=== PATIENT | female | born 1990 | race Caucasian/White ===

== ENCOUNTER 2017-10-15 17:03 | Emergency (ER) | payer MEDICAID ==
[~2017-10-15] VITALS: Ht 167.6 cm; Wt 95.7 kg
[2017-10-15 17:16] VITALS: BP 128/79
--- NOTE | 2017-10-15 17:22 | NUR ---
Patient being evaluated by Dr. Carter at bedside.
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
[2017-10-15] MEDS ORDERED: METOCLOPRAMIDE 10 MG/2 ML INJ VIAL IM ONE (17:35)
[2017-10-15] MEDS ORDERED: ACETAMINOPHEN EXTRA STRENGTH 500 MG TAB PO ONE (17:35)
--- NOTE | 2017-10-15 17:50 | NUR ---
X-Ray at bedside.
[2017-10-15 18:05] LABS: BASOPHILS # (AUTO) 0.5 K/uL (0.00-0.22); EOSINOPHILS # (AUTO) 0.1 K/uL (0-0.4); HEMOGLOBIN 13.5 g/dL (12.0-16.0); LYMPHOCYTES # (AUTO) 2.3 K/uL (2.5-16.5); RED CELL DISTRIBUTION WIDTH 12.1 % (11.6-13.7)
[2017-10-15 18:08] LABS: HEMATOCRIT 39.7 % (36-48); MEAN CORPUSCULAR HEMOGLOBIN 30 pg (27-31); MEAN CORPUSCULAR HGB CONC 34 g/dL (33-37); MEAN CORPUSCULAR VOLUME 88 fL (80-94); MONOCYTES # (AUTO) 1.1 K/uL (0.8-1.0); NEUTROPHILS # (AUTO) 8.2 K/uL (1.8-7.7); PLATELET COUNT (AUTO) 241 K/uL (140-450); RED BLOOD CELL COUNT(AUTO) 4.49 MIL/uL (4.20-5.40); WHITE BLOOD COUNT (AUTO) 12.2 K/uL (4.8-10.8)
[2017-10-15 18:09] LABS: APPEARANCE,URINE CLEAR (CLEAR); BILIRUBIN,URINE NEGATIVE (NEGATIVE); BLOOD, URINE TRACE-I (NEGATIVE); LEUKOCYTE ESTERASE ,URINE NEGATIVE (NEGATIVE); NITRITE, URINE NEGATIVE (NEGATIVE); UGLUCOSE NEGATIVE (NEGATIVE)
[2017-10-15 18:19] LABS: ANION GAP 11.4 (8-16); CARBON DIOXIDE 28.5 mmol/L (21-32); CREATININE 0.8 mg/dL (0.6-1.3); POTASSIUM 3.9 mmol/L (3.5-5.1)
[2017-10-15 18:24] LABS: COLOR,URINE STRAW (YELLOW); RBC,URINE 0-5 (RARE) /HPF (0-5); WBC,URINE NONE SEEN /HPF (0-5)
--- NOTE | 2017-10-15 18:24 | NUR ---
PATIENT ELOPED FROM FACILITY. DISCHARGE INSTRUCTIONS NOT GIVEN TO PATIENT. DR. MCDANIEL NOTIFIED.
[2017-10-15 18:25] LABS: TOTAL BILIRUBIN 0.3 mg/dL (0.0-1.0)
== END 2017-10-15 18:24 | disposition left against medical advice (07) ==
LOC: MED 17:03
DX: R51 Headache (principal); R11.2 Nausea with vomiting, unspecified; Z90.89 Acquired absence of other organs
CPT/HCPCS: 36415; 36600; 71010; 80053; 81001; 81025; 82803; 85025; 96372; 99285; J2765

== ENCOUNTER 2020-05-22 14:54 | Emergency (ER) | payer BC, MEDICAID ==
[~2020-05-22] VITALS: Ht 165.1 cm; Wt 95.7 kg
[2020-05-22 15:04] VITALS: BP 128/78
[2020-05-22] MEDS: ONDANSETRON 4 MG ODT PO ONE ×2 (15:13→15:17)
[2020-05-22] MEDS: ACETAMINOPHEN EXTRA STRENGTH 500 MG TAB PO ONE ×2 (15:13→15:17)
[2020-05-22 15:49] VITALS: BP 118/75
== END 2020-05-22 15:44 | disposition home or self-care (01) ==
LOC: MED 14:54
DX: B34.9 Viral infection, unspecified (principal); Z20.828 Contact with and (suspected) exposure to other viral communicable diseases
CPT/HCPCS: 99283; Q0162; U0003

== ENCOUNTER 2021-03-19 19:50 | Emergency (ER) | payer BC ==
[~2021-03-19] VITALS: Ht 175.3 cm; Wt 93.0 kg
[2021-03-19 19:57] VITALS: BP 152/86
[2021-03-19] MEDS ORDERED: NACL 0.9% 1,000 ML IV ONE (20:25)
[2021-03-19] MEDS ORDERED: diphenhydrAMINE 50 MG/ML VIAL IVP ONE (20:25)
[2021-03-19] MEDS ORDERED: METOCLOPRAMIDE 10 MG/2 ML INJ VIAL IVP ONE (20:25)
[2021-03-19] MEDS ORDERED: ACET-8386 PO (20:47)
[2021-03-19] MEDS ORDERED: ONDA8TAB87 PO (20:47)
[2021-03-19] MEDS ORDERED: IBUP-2213 PO (20:47)
[2021-03-19] MEDS ORDERED: MORPHINE SULFATE 4 MG/ML SYR IVP ONE (21:10)
[2021-03-19 21:38] VITALS: BP 152/86
== END 2021-03-19 21:38 | disposition home or self-care (01) ==
LOC: MED 19:50
DX: R51.9 Headache, unspecified (principal); I10 Essential (primary) hypertension
CPT/HCPCS: 81002; 81025; 96361; 96374; 96375; 99284; J1200; J2270; J2765; J7030

== ENCOUNTER 2022-01-22 12:04 | Emergency (ER) | payer BC, MEDICAID ==
[~2022-01-22] VITALS: Ht 175.3 cm; Wt 118.4 kg
[~2022-01-22 12:04] MED LIST: ACET-8386 PO; IBUP-2213 PO; ONDA8TAB87 PO
[2022-01-22 12:19] VITALS: BP 159/95
[2022-01-22] MEDS ORDERED: KETOROLAC 60 MG/2 ML VIAL IM ONE ×2 (12:25→13:51)
--- NOTE | 2022-01-22 13:00 | NUR ---
31/F C/O LEFT SHOULDER AND ARM PAIN X1 WEEK, DENIES RECENT INJURY, TRAUMA OR RECENT HEAVY LIFTING. REPORTS TAKING FLEXERIL, GABAPENTIN, IBUPROFEN WITH NO RELIEF. MEDHX: DENIES ALLERGIES: NKA
[2022-01-22] MEDS ORDERED: ACET-8386 PO (13:28)
[2022-01-22 14:54] VITALS: BP 118/65
--- NOTE | 2022-01-22 14:58 | NUR ---
Patient discharged with v/s stable. Written and verbal after care instructions given and explained. Patient alert, oriented and verbalized understanding of instructions. Ambulatory with steady gait. All questions addressed prior to discharge. ID band removed. Patient advised to follow up with PMD. Rx of hydrocodone (sent) given. Patient educated on indication of medication including possible reaction and side effects. Opportunity to ask questions provided and answered.
== END 2022-01-22 14:58 | disposition home or self-care (01) ==
LOC: MED 12:04
DX: M25.512 Pain in left shoulder (principal); I10 Essential (primary) hypertension; Z79.899 Other long term (current) drug therapy
CPT/HCPCS: 96372; 99283; J1885